=== PATIENT | male | born 1965 | race Caucasian/White ===

== ENCOUNTER 2018-02-24 03:35 | Emergency (ER) | payer OTHER ==
[~2018-02-24] VITALS: Ht 180.3 cm; Wt 94.5 kg
[~2018-02-24 03:35] MED LIST changes: -ZOFRAN ODT4 MG PO
[2018-02-24 03:39] VITALS: TEMP 97.5
[2018-02-24] MEDS ORDERED: ZOFRAN ODT4 MG PO (04:32)
[2018-02-24 06:35] VITALS: BP 153/96; PULSE 58
== END 2018-02-24 06:35 | disposition home or self-care (01) ==
LOC: COL.ER 03:35
DX: G89.29 Other chronic pain (principal); M54.2 Cervicalgia; M54.14 Radiculopathy, thoracic region; Z90.49 Acquired absence of other specified parts of digestive tract; Z98.890 Other specified postprocedural states; Z79.52 Long term (current) use of systemic steroids
CPT/HCPCS: J1170; J1885

== ENCOUNTER → 2018-02-24 | Outpatient (CLI) | payer OTHER ==
[~2018-02-24] MED LIST: ATIVAN 0.50.5 MG/TAB PO; COLACE 100100 MG/CAP PO; CORTEF 20MG TAB20 MG PO; DESYREL 50MG50 MG PO; DILAUDID 2MG TAB2 MG PO; LIORESAL 1010 MG/TAB PO; MIRALAX PA17 GM/Dose PO; NAPROSYN500 MG PO; NEXIUM 40MG40 MG PO; TYLENOL 325MG325 MG PO; ULTRAM 50MG TAB50 MG PO; ZOFRAN ODT4 MG PO
== END ==
LOC: MHCPAIN 08:29
DX: G89.29 Other chronic pain (principal); M54.12 Radiculopathy, cervical region; M47.812 Spondylosis without myelopathy or radiculopathy, cervical region
CPT/HCPCS: G0463

== ENCOUNTER 2024-06-16 20:33 | Emergency (ER) | payer BC ==
[~2024-06-16] VITALS: Ht 180.3 cm; Wt 97.7 kg
[~2024-06-16 20:33] MED LIST changes: +ZOFRAN ODT4 MG PO
[2024-06-16 20:38] VITALS: TEMP 98
[2024-06-16 21:13] LABS: BASO % 0.4 % (0.0-2.0); EOS # 0.3 K/mm3 (0.0-0.7); EOS % 4.8 % (0.0-4.0); GRAN # 3.4 K/mm3 (1.4-6.5); GRAN % 60.2 % (42.2-75.2); HEMATOCRIT 46.3 % (42.0-52.0); HEMOGLOBIN 16.1 g/dl (13.5-18.0); LYMPH # 1.4 K/mm3 (1.2-3.4); LYMPH % 24.7 % (20.0-51.0); MEAN CELL VOLUME 87 fl (80.0-100.0); MEAN CORPUSCULAR HEMOGLOBIN 30 pg (27-31); MEAN CORPUSCULAR HGB CONC 35 g/dl (33.0-37.0); MEAN PLATELET VOLUME 10.8 fl (7.4-10.4); MONO # 0.6 K/mm3 (0.1-0.6); MONO % 9.7 % (1.7-9.3); PLATELET COUNT 167 K/mm3 (130-400); REDCELL DISTRIBUTION WIDTH-CV 12.3 % (11.5-14.5)
[2024-06-16 21:15] LABS: PROTHROMBIN TIME 10.7 SECONDS (9.7-12.8)
[2024-06-16 21:18] LABS: PARTIAL THROMBOPLASTIN TIME 34.1 SECONDS (26.0-37.0)
[2024-06-16 21:27] LABS: ALANINE AMINOTRANSFERASE 29 U/L (0-55); ALBUMIN 4.4 g/dL (3.4-4.8); ALKALINE PHOSPHATASE 76 U/L (40-150); ANION GAP 10 mmol/L (7-16); AST,SGOT 22 U/L (5-34); BILIRUBIN,TOTAL 0.4 mg/dL (0.2-1.2); BLOOD UREA NITROGEN 14 mg/dL (8-26); CALCIUM 10.2 mg/dL (8.4-10.2); CHLORIDE 105 mEq/L (98-107); CREATININE, serum 1.06 mg/dL (0.72-1.25); GLUCOSE 93 mg/dL (70-99); POTASSIUM 4.2 mEq/L (3.5-4.5); SODIUM 141 mEq/L (136-145); TOTAL PROTEIN 7.7 g/dl (6.2-8.1)
[2024-06-16] MEDS ORDERED: Ketorolac 15 MG/ML VIAL IV ONE (21:30)
[2024-06-16] MEDS ORDERED: Cyclobenzaprine 10 MG TAB PO ONE (21:30)
[2024-06-16 21:33] LABS: TROPONIN-I < 0.010 ng/mL (0.00-0.033)
[2024-06-16] MEDS ORDERED: Ondansetron 4 MG/2 ML VIAL IV ONE (21:45)
[2024-06-16] MEDS ORDERED: NAPROSYN500 MG PO (22:17)
[2024-06-16 22:31] VITALS: BP 135/84; PULSE 64
== END 2024-06-16 22:38 | disposition home or self-care (01) ==
LOC: COL.ER 20:33
PROVIDERS: Emergency Medicine
DX: M79.602 Pain in left arm (principal)
CPT/HCPCS: J1885; J2405